=== PATIENT | female | born 1945 | race Caucasian/White ===

== ENCOUNTER → 2016-07-26 | Outpatient (CLI) | payer MEDICARE ==
--- NOTE | 2016-07-27 07:33 | MM ---
Reason for exam: screening (asymptomatic). Last mammogram was performed 1 year ago. History: Patient is postmenopausal. Took estrogen for 2 years beginning at age 51. Physical Findings: A clinical breast exam by your physician is recommended on an annual basis and results should be correlated with mammographic findings. MG 3D Screening Mammo W/Cad Bilateral CC and MLO view(s) were taken. Prior study comparison: July 24, 2015, bilateral MG 3d screening mammo w/cad. July 18, 2014, bilateral MG screening mammo w CAD. The breast tissue is heterogeneously dense. This may lower the sensitivity of mammography. No significant changes when compared with prior studies. ASSESSMENT: Benign, BI-RAD 2 RECOMMENDATION: Routine screening mammogram of both breasts in 1 year.
== END | disposition home or self-care (01) ==
LOC: RADMAMWWP 11:00
PROVIDERS: ATTEND Family Medicine
DX: Z12.31 Encounter for screening mammogram for malignant neoplasm of breast (principal)
CPT/HCPCS: 77063; G0202

== ENCOUNTER → 2017-01-03 | Outpatient (CLI) | payer MEDICARE | END | disposition home or self-care (01) | LOC: MMGSC 14:16 | PROVIDERS: ATTEND Family Medicine | DX: J32.9 Chronic sinusitis, unspecified (principal) | CPT/HCPCS: 87070 ==

== ENCOUNTER → 2017-04-26 | Outpatient (CLI) | payer MEDICARE ==
[2017-04-26 15:38] LABS: Potassium 4.6 mmol/L (3.5-5.1)
== END | disposition home or self-care (01) ==
LOC: LABWHC1 14:51
PROVIDERS: ATTEND Internal Medicine Cardiovascular Disease
DX: R00.2 Palpitations (principal)
CPT/HCPCS: 36415; 80051; 82565; 84443; 84520

== ENCOUNTER → 2017-06-15 | Outpatient (CLI) | payer MEDICARE ==
--- NOTE | 2017-06-15 13:11 | XR ---
EXAMINATION TYPE: XR ribs RT DATE OF EXAM: 06/15/2017 COMPARISON: NONE HISTORY: Pain TECHNIQUE: 5 views submitted FINDINGS: Visualized ribs are intact. Lung alvarez clear. No pneumothorax. No acute displaced rib frac ture. IMPRESSION: No acute displaced rib fracture.
== END | disposition home or self-care (01) ==
LOC: RADXRMAIN 11:53
PROVIDERS: ATTEND Family Medicine
DX: R07.81 Pleurodynia (principal)

== ENCOUNTER → 2017-10-17 | Outpatient (CLI) | payer MEDICARE ==
--- NOTE | 2017-10-19 10:17 | MM ---
Reason for exam: screening (asymptomatic). Last mammogram was performed 1 year and 3 months ago. History: Patient is postmenopausal. Took estrogen for 2 years beginning at age 51. Physical Findings: A clinical breast exam by your physician is recommended on an annual basis and results should be correlated with mammographic findings. MG 3D Screening Mammo W/Cad Bilateral CC and MLO view(s) were taken. Prior study comparison: July 26, 2016, bilateral MG 3d screening mammo w/cad. July 24, 2015, bilateral MG 3d screening mammo w/cad. The breast tissue is extremely dense which could obscure a lesion on mammography. New posterior central nodularity right MLO view. ASSESSMENT: Incomplete: need additional imaging evaluation, BI-RAD 0 RECOMMENDATION: Special view mammogram of the right breast. If lesion persists on supplemental views, image directed ultrasound is recommended. [facility] will attempt to contact patient to return for supplemental views and ultrasound if indicated.
== END | disposition home or self-care (01) ==
LOC: RADMAMWWP 14:00
PROVIDERS: ATTEND Family Medicine
DX: Z12.31 Encounter for screening mammogram for malignant neoplasm of breast (principal)
CPT/HCPCS: 77063; 77067

== ENCOUNTER → 2017-10-26 | Outpatient (CLI) | payer MEDICARE ==
--- NOTE | 2017-10-27 09:51 | MM ---
Reason for exam: additional evaluation requested from abnormal screening. Last mammogram was performed less than 1 month ago. History: Patient is postmenopausal. Took estrogen for 2 years beginning at age 51. Physical Findings: Nurse did not find any significant physical abnormalities on exam. MG 3D Work Up W/Cad RT LM and spot compression MLO view(s) were taken of the right breast. Prior study comparison: October 17, 2017, bilateral MG 3d screening mammo w/cad. July 26, 2016, bilateral MG 3d screening mammo w/cad. The breast tissue is extremely dense which could obscure a lesion on mammography. The posterior nodular asymmetric density does not persist on additional views. These results were verbally communicated with the patient and result sheet given to the patient on 10/26/17. ASSESSMENT: Incomplete: need additional imaging evaluation, BI-RAD 0 RECOMMENDATION: Ultrasound of the right breast.
--- NOTE | 2017-10-27 10:13 | USB ---
Reason for exam: additional evaluation requested from abnormal screening. History: Patient is postmenopausal. Took estrogen for 2 years beginning at age 51. US Breast Workup Limited RT Right limited breast ultrasound including focal area of concern, retroareolar and axilla demonstrates a 0.3 x 0.5 x 0.1cm oval, cystic, benign lesion at 5 o'clock and a 0.5 x 0.4 x 0.2cm oval, cystic benign lesion at 8 o'clock. At 9 o'clock there is a vague focal hypoechoic area measuring 8 x 7 x 3mm. The nurse wound reports that it is difficult to identify. Uncertain if this is a true lesion, 6 month follow up recommended. These results were verbally communicated with the patient and result sheet given to the patient on 10/26/17. ASSESSMENT: Probably benign, BI-RAD 3 RECOMMENDATION: Ultrasound of the right breast in 6 months. (9 o'clock)
== END | disposition home or self-care (01) ==
LOC: RADMAMWWP 13:33
PROVIDERS: ATTEND Family Medicine
DX: R92.8 Other abnormal and inconclusive findings on diagnostic imaging of breast (principal)
CPT/HCPCS: 77065; 76642; G0279; 77061

== ENCOUNTER → 2018-11-13 | Outpatient (CLI) | payer MEDICARE ==
--- NOTE | 2018-11-13 10:16 | MM ---
Reason for exam: additional evaluation requested from prior study. Last mammogram was performed 1 year and 1 month ago. History: Patient is postmenopausal. Took estrogen for 2 years beginning at age 51. Physical Findings: Nurse did not find any significant physical abnormalities on exam. MG 3D Diag Mammo W/Cad LASHAWN Bilateral CC and MLO view(s) were taken. Prior study comparison: October 26, 2017, right breast MG 3d work up w/cad RT. October 17, 2017, bilateral MG 3d screening mammo w/cad. The breast tissue is heterogeneously dense. This may lower the sensitivity of mammography. There is chronic nodularity in the right breast. No significant new findings when compared with previous films. These results were verbally communicated with the patient and result sheet given to the patient on 11/13/18. ASSESSMENT: Benign, BI-RAD 2 RECOMMENDATION: Routine screening mammogram of both breasts in 1 year.
== END | disposition home or self-care (01) ==
LOC: RADMAMWWP 09:26
PROVIDERS: ATTEND Family Medicine
DX: R92.8 Other abnormal and inconclusive findings on diagnostic imaging of breast (principal)
CPT/HCPCS: 77066; G0279; 77062

== ENCOUNTER → 2020-09-17 | Outpatient (CLI) | payer MEDICARE ==
--- NOTE | 2020-09-19 08:59 | MM ---
Reason for exam: screening (asymptomatic). Last mammogram was performed 1 year and 10 months ago. History: Patient is postmenopausal. Took estrogen for 2 years beginning at age 51. Physical Findings: A clinical breast exam by your physician is recommended on an annual basis and results should be correlated with mammographic findings. MG 3D Screening Mammo W/Cad Bilateral CC and MLO view(s) were taken. Prior study comparison: November 13, 2018, bilateral MG 3d diag mammo w/cad LASHAWN. October 17, 2017, bilateral MG 3d screening mammo w/cad. July 26, 2016, bilateral MG 3d screening mammo w/cad. The breast tissue is extremely dense which could obscure a lesion on mammography. Benign vascular calcifications. No significant changes when compared with prior studies. ASSESSMENT: Benign, BI-RAD 2 RECOMMENDATION: Routine screening mammogram of both breasts in 1 year. Patient should continue monthly self breast exams. A negative report should not preclude additional follow up of suspicious palpable abnormalities.
== END | disposition home or self-care (01) ==
LOC: RADMAMWWP 14:51
PROVIDERS: ATTEND Family Medicine
DX: Z12.31 Encounter for screening mammogram for malignant neoplasm of breast (principal); Z78.0 Asymptomatic menopausal state; Z79.818 Long term (current) use of other agents affecting estrogen receptors and estrogen levels
CPT/HCPCS: 77063; 77067

== ENCOUNTER → 2021-10-19 | Outpatient (CLI) | payer MEDICARE ==
--- NOTE | 2021-10-19 14:35 | MM ---
Reason for Exam: Screening (asymptomatic). Last mammogram was performed 1 year(s) and 1 month(s) ago. Patient History: Menarche at age 14. First Full-Term at age 29. Postmenopausal. Estrogen for 2 years from age 51 until age 53. Risk Values: Mimi 5 year model risk: 2.0%. NCI Lifetime model risk: 4.2%. Prior Study Comparison: 10/26/2017 Right Diagnostic Mammogram, [facility]. 11/13/2018 Bilateral Diagnostic Mammogram, [facility]. 09/17/2020 Bilateral Screening Mammogram, [facility]. Tissue Density: The breast tissue is heterogeneously dense. This may lower the sensitivity of mammography. Findings: Analyzed By CAD. Benign-appearing calcifications bilaterally. There is no suspicious group of microcalcifications or new suspicious mass in either breast. Overall Assessment: Benign, BI-RAD 2 Management: Screening Mammogram of both breasts in 1 year. A clinical breast exam by your physician is recommended on an annual basis and results should be correlated with mammographic findings. Electronically signed and approved by: Modesto Alcantara DO
== END | disposition home or self-care (01) ==
LOC: RADMAMWWP 13:45
PROVIDERS: ATTEND Family Medicine
DX: Z12.31 Encounter for screening mammogram for malignant neoplasm of breast (principal); Z78.0 Asymptomatic menopausal state
CPT/HCPCS: 77063; 77067

== ENCOUNTER → 2022-09-22 | Outpatient (CLI) | payer MEDICARE ==
[2022-09-22 11:56] LABS: HCT 43.3 % (37.2-46.3); HGB 13.6 d/dL (12.0-15.0); MCH 29.7 pg (27.0-32.0); MCHC 31.4 d/dL (32.0-37.0); MCV 94.5 FL (80.0-97.0); RBC 4.58 X 10*6/uL (4.10-5.20); RDW 13.2 % (11.5-14.5); WBC 3.56 X 10*3/uL (4.50-10.00)
[2022-09-22 11:57] LABS: Basophils # (A) 0.04 X 10*3/uL (0.00-0.10); Basophils % (A) 1.1 %; Eosinophils # (A) 0.18 X 10*3/uL (0.04-0.35); Eosinophils % (A) 5.1 %; Immature Grans, Automated 0 %; Lymphocytes # (A) 1.67 X 10*3/uL (0.90-5.00); Lymphocytes % (A) 46.9 %; Monocytes # (A) 0.48 X 10*3/uL (0.20-1.00); Monocytes % (A) 13.5 %; NRBC Per 100 WBC 0 X 10*3/uL (0.00-0.01); Neutrophils # (A) 1.19 X 10*3/uL (1.80-7.70); Neutrophils % (A) 33.4 %; Platelet Count 257 X 10*3/uL (140-440)
[2022-09-22 12:15] LABS: ALT 18 U/L (8-44); AST 20 U/L (13-35); Albumin 4.4 d/dL (3.8-4.9); Alkaline Phosphatase 49 U/L (41-126); BUN/Creat Ratio 18.38 Ratio (12.00-20.00); Blood Urea Nitrogen 14.7 mg/dL (9.0-27.0); Calcium 9.9 mg/dL (8.7-10.3); Carbon Dioxide 25.3 mmol/L (21.6-31.8); Chloride 106 mmol/L (96-109); Chol/HDL Ratio 3.48 Ratio; Globulin 2.1 d/dL (1.6-3.3); Glucose 86 mg/dL (70-110); LDL Cholesterol,Calculated 130.8 mg/dL (0.0-131.0); Potassium 4.5 mmol/L (3.5-5.5); Sodium 141 mmol/L (135-145); Total Bilirubin 0.5 mg/dL (0.3-1.2); Total Protein 6.5 d/dL (6.2-8.2)
== END | disposition home or self-care (01) ==
LOC: LABWHC1 07:30
PROVIDERS: ATTEND Family Medicine
DX: Z00.00 Encounter for general adult medical examination without abnormal findings (principal)
CPT/HCPCS: 36415; 80053; 80061; 83036; 85025; 86803

== ENCOUNTER → 2022-10-22 | Outpatient (CLI) | payer MEDICARE ==
--- NOTE | 2022-10-26 22:58 | MM ---
Reason for Exam: Screening (asymptomatic). Last mammogram was performed 1 year(s) and 1 month(s) ago. Patient History: Menarche at age 14. First Full-Term at age 29. Postmenopausal. Estrogen for 2 years from age 51 until age 53. Risk Values: Mimi 5 year model risk: 2.0%. NCI Lifetime model risk: 4.0%. Prior Study Comparison: 11/13/2018 Bilateral Diagnostic Mammogram, [facility]. 09/17/2020 Bilateral Screening Mammogram, [facility]. 10/19/2021 Bilateral MG 3D screening mammo w/cad, [facility]. Tissue Density: The breast tissue is heterogeneously dense. This may lower the sensitivity of mammography. Findings: Analyzed By CAD. Benign bilateral vascular calcifications are redemonstrated. There is no suspicious group of microcalcifications or new suspicious mass in either breast. Overall Assessment: Benign, BI-RAD 2 Management: Screening Mammogram of both breasts in 1 year. . Patient should continue monthly self-breast exams. A clinical breast exam by your physician is recommended on an annual basis. This exam should not preclude additional follow-up of suspicious palpable abnormalities. Note on Mimi scores and lifetime risk: 1. A Mimi score greater than 3% is considered moderate risk. If this is the case, consider specialist referral to assess eligibility for a risk reducing agent. 2. If overall lifetime risk for the development of breast cancer is 20% or higher, the patient may qualify for future screening with alternating mammogram and breast MRI. Electronically signed and approved by: Quang Lopez M.D. Radiologist
== END | disposition home or self-care (01) ==
LOC: RADMAMWWP 15:14
PROVIDERS: ATTEND Family Medicine
DX: Z12.31 Encounter for screening mammogram for malignant neoplasm of breast (principal); Z78.0 Asymptomatic menopausal state
CPT/HCPCS: 77063; 77067

== ENCOUNTER → 2023-09-14 | Outpatient (CLI) | payer MEDICARE ==
[2023-09-14 13:22] LABS: African American GFR (CKD) 86 (>60 ml/min/1.73 sqM); Blood Urea Nitrogen 15 mg/dL (7-17); Non-African American GFR(CKD) 75 (>60 ml/min/1.73 sqM)
--- NOTE | 2023-09-14 14:24 | US ---
EXAMINATION TYPE: US carotid duplex BILAT DATE OF EXAM: 09/14/2023 COMPARISON: NONE CLINICAL INDICATION: Female, 78 years old with history of R29.810 FACIAL WEAKNESS; Facial weakness an d twitching TECHNIQUE: Carotid duplex ultrasound examination. Indirect Doppler criteria was utilized. FINDINGS: EXAM MEASUREMENTS: RIGHT: Peak Systolic Velocity (PSV) cm/sec ----- Right CCA: 63.6 ----- Right ICA: 62.7 ----- Right ECA: 87.1 ICA/CCA ratio: 1.0 RIGHT: End Diastole cm/sec ----- Right CCA: 12.1 ----- Right ICA: 16.5 ----- Right ECA: 6.5 LEFT: Peak Systolic Velocity (PSV) cm/sec ----- Left CCA: 61.0 ----- Left ICA: 77.9 ----- Left ECA: 65.9 ICA/CCA ratio: 1.3 LEFT: End Diastole cm/sec ----- Left CCA: 12.5 ----- Left ICA: 24.1 ----- Left ECA: 8.6 VERTEBRALS (direction of flow): Right Vertebral: Antegrade Left Vertebral: Antegrade Rhythm: Normal RIVET SORTER NOTES: No significant stenosis seen IMPRESSION: No ultrasound evidence for hemodynamic significant stenosis of the bilateral visualized carotid arter ial systems. Criteria for Assigning % of Stenosis / Diameter reduction (Estimation based on the indirect measurements of the internal carotid artery velocities (ICA PSV). 1. Normal (no stenosis)=ICA PSV < 125 cm/s: ratio < 2.0: ICA EDV<40 cm/s. 2. Less than 50% stenosis=ICA PSV < 125 cm/s: ratio < 2.0: ICA EDV<40 cm/s. 3. 50 to 69% stenosis=ICA PSV of 125 to 230 cm/s: ration 2.0 ? 4.0: ICA EDV 40-100 cm/s. 4. Greater than 70% stenosis to near occlusion= ICA PSV > 230 cm/s: ratio > 4.0: ICA EDV > 100 cm/s. 5. Near occlusion= ICA PSV velocities may be low or undetectable: variable ratio and ICA EDV. 6. Total occlusion=unable to detect flow.
--- NOTE | 2023-09-14 15:03 | CT ---
EXAMINATION TYPE: CT brain wo/w con CT DLP: 2238 mGycm, Automated exposure control for dose reduction was used. DATE OF EXAM: 09/14/2023 2:21 PM COMPARISON: . CLINICAL INDICATION:Female, 78 years old with history of R29.810 FACIAL WEAKNESS; PHH, facial weaknes s TECHNIQUE: Axial CT images of the brain were obtained with coronal and sagittal reformats created and reviewed. Contrast used:100ml mL of Isovue 300 without and with IV Contrast, Oral contrast used: none. FINDINGS: Extra-axial spaces: Possible arachnoid cyst manifested by way CSF space in the left posterior cranial fossa. Otherwise, No abnormal extra-axial fluid collections. Ventricular system: Within normal limits Cerebral parenchyma: No acute intraparenchymal hemorrhage or mass effect. The polo-white junction is well differentiated. No abnormal enhancement is seen after the administration of intravenous contras t. Cerebellum: Unremarkable. Mass effect: No evidence of midline shift. Intracranial vasculature: unremarkable Soft tissues: Normal. Calvarium/osseous structures: No depressed skull fracture. Paranasal sinuses and mastoid air cells: Clear. Visualized orbits: Orbital contents are intact. IMPRESSION: No acute intracranial process. : Possible arachnoid cyst versus venous vessel versus other etiology manifested by CSF attenuation sp janes in the left posterior cranial fossa. MRI brain follow-up recommended.
== END | disposition home or self-care (01) ==
LOC: RADCTMAIN 12:35
PROVIDERS: ATTEND Family Medicine
DX: R29.810 Facial weakness (principal)
CPT/HCPCS: 82565; 84520; 93880; 70470; 36415; Q9967

== ENCOUNTER 2023-10-07 10:00 | Day surgery (SDC) | payer MEDICARE ==
[2023-10-07] MEDS ORDERED: ONDANSETRON 4 MG/2 ML VIAL ONE (10:43)
[2023-10-07] MEDS ORDERED: LIDOCAINE 1% INJ 10MG/ML (20 ML MDV) ONE (10:54)
[2023-10-07] MEDS ORDERED: LACTATED RINGERS 1,000 ML BAG ONE (10:54)
[2023-10-07] MEDS ORDERED: PROPOFOL 10 MG/ML 20 ML VIAL IV ONE (10:54)
--- NOTE | 2023-10-26 16:30 | OP ---
OPERATIVE REPORT DATE OF SERVICE : 10/07/2023 REQUESTING PHYSICIAN: Dr. Romo. BRIEF HISTORY: Patient is a 78-year-old pleasant white female scheduled for a colonoscopy as a part of evaluation of positive Cologuard/screening for colon cancer. PROCEDURE PERFORMED: Colonoscopy. PREOPERATIVE DIAGNOSIS: Screening for colon cancer and positive Cologuard, IV sedation per Anesthesia. DESCRIPTION OF PROCEDURE: After informed consent was obtained from the patient, he was brought to the endoscopy unit. IV conscious sedation was administered by Anesthesia and continuous monitoring. Initial distal rectal examination was normal. The Olympus CF-190 video colonoscope was then inserted into the rectum and gradually advanced into the cecum with moderate-to- severe difficulty. Careful examination was performed as the scope was gradually being withdrawn. There was large amount of thick stool noted throughout the entire colon and thorough irrigation was performed. Despite adequate irrigation, there were several areas of the colon that could not be adequately visualized. Part of the cecum was visualized that appeared normal. I was not able to aspirate the stool in the cecum. Mucosa of the ascending colon, transverse colon appeared normal. Part of the hepatic flexure and transverse colon could not be adequately visualized. Mucosa of the sigmoid colon and rectum appeared normal. Retroflexion was performed in the rectum. Small internal hemorrhoids were seen. Patient tolerated the procedure well. IMPRESSION: 1. Poor prep in several areas of the colon precluding adequate visualization. 2. Small internal hemorrhoids. RECOMMENDATION: Findings of this examination were discussed with the patient as well as the family. She was advised to be on a high-fiber diet, take fiber supplements on a regular basis, and use osmotic laxatives as needed and because of the poor prep, I recommend her to have a repeat colonoscopy in 1 to 2 years. MMODL / IJN: [id number] /
== END 2023-10-07 12:05 ==
LOC: ORWHC2ENDO 10:00
PROVIDERS: ATTEND Internal Medicine Gastroenterology
DX: K64.8 Other hemorrhoids (principal); I10 Essential (primary) hypertension; Z79.899 Other long term (current) drug therapy
CPT/HCPCS: 45378

== ENCOUNTER → 2023-11-16 | Outpatient (CLI) | payer MEDICARE ==
--- NOTE | 2023-11-20 08:05 | MM ---
Reason for Exam: Screening (asymptomatic). Last screening mammogram was performed 12 month(s) ago. Patient History: Menarche at age 14. First Full-Term at age 29. Postmenopausal. Estrogen for 2 years from age 51 until age 53. Risk Values: Mimi 5 year model risk: 1.9%. NCI Lifetime model risk: 3.7%. Prior Study Comparison: 09/17/2020 Bilateral Screening Mammogram, [facility]. 10/19/2021 Bilateral MG 3D screening mammo w/cad, [facility]. 10/22/2022 Bilateral MG 3D screening mammo w/cad, [facility]. Tissue Density: The breasts are heterogeneously dense, which may obscure small masses. Findings: Analyzed By CAD. The pattern is symmetrical. There is a focal asymmetric density within the anterior right breast present previously a benign vascular calcifications present bilaterally. No suspicious groups of microcalcifications, spiculated or lobular masses, architectural distortion or other secondary signs of malignancy are mammographically apparent. Overall Assessment: Benign, BI-RAD 2 Management: Screening Mammogram of both breasts in 1 year. A negative mammogram report should not preclude additional follow up of suspicious palpable abnormalities. Patient should continue monthly self breast exam. A clinical breast exam by your physician is recommended on an annual basis and results should be correlated with mammographic findings. Note on Mimi scores and lifetime risk: 1. A Mimi score greater than 3% is considered moderate risk. If this is the case, consider specialist referral to assess eligibility for a risk reducing agent. 2. If overall lifetime risk for the development of breast cancer is 20% or higher, the patient may qualify for future screening with alternating mammogram and breast MRI. [facility], , 11/20/2023 8:02 AM. Electronically signed and approved by: Octavio Solares D.O. Radiologis
== END | disposition home or self-care (01) ==
LOC: RADMAMWWP 15:02
PROVIDERS: ATTEND Family Medicine
CPT/HCPCS: 77063; 77067

== ENCOUNTER → 2023-12-21 | Outpatient (CLI) | payer MEDICARE ==
--- NOTE | 2023-12-22 11:10 | MR ---
EXAMINATION TYPE: MR angio head wo con DATE OF EXAM: 12/21/2023 10:10 AM COMPARISON: 12/21/2023 MRI brain., CT 09/14/2023. CLINICAL INDICATION: Female, 78 years old with history of R29.810 FACIAL WEAKNESS R94.02 ABNORMAL BRA IN SCAN; [facility], TECHNIQUE: 3-D [id number] Axial with MIP reconstruction created on a separate workstation.. IV Contrast: None cc FINDINGS: Vertebral arteries: The vertebral arteries are patent. Vertebral arteries are: Codominant. Basilar artery: The basilar artery is intact. The basilar artery bifurcation is normal. Internal Carotid arteries: The cervical, petrous, cavernous and supraclinoid segments are normal. KARY: Atrophic right P1 segment. Patent with no evidence of aneurysm. ACOM: Present without evidence of aneurysm. MCA: Patent with no evidence of aneurysm. FORESTRY TECHNICAL OFFICER: Patent with no evidence of aneurysm. PCOM: Hypoplastic bilaterally. IMPRESSION: 1. No evidence of aneurysm or significant stenosis. 2. Hypoplastic right A1 segment. 3. Please see dedicated MRI brain for findings involving the posterior cranial fossa. [facility], , 12/22/2023 11:08 AM
--- NOTE | 2023-12-22 13:27 | MR ---
EXAMINATION TYPE: MR brain and iac wo/w con DATE OF EXAM: 12/21/2023 10:10 AM COMPARISON: CT 09/14/2023. CLINICAL INDICATION: Female, 78 years old with history of R29.810 FACIAL WEAKNESS R94.02 ABNORMAL BRA IN SCAN; [facility], Abnormal CT TECHNIQUE: Multi planar, multi sequence imaging was performed through the brain. Specialized thin s equences were obtained through the internal auditory canals. Pre-and post gadolinium sequences were obtained. MR contrast: IV Contrast: 6 cc Gadobutrol FINDINGS: Prominent CSF space along the left lateral aspect of the cerebellum and no significant mass effect upon the cerebellum itself. This makes it less likely to be an arachnoid cyst and is prominen t cerebrospinal fluid space. The polo-white junctions, ventricular system, and cisterns appear unrema rkable. Scattered foci of high T2 signal intensity are seen within the periventricular white matter. Midline structures show no abnormality. Diffusion-weighted imaging shows no evidence of restricted d iffusion. The susceptibility weighted images do not reveal any evidence for micro-hemorrhage. The bone marrow signal is within normal limits. Paranasal sinuses and mastoid air cells: Mild scattered paranasal sinus disease. Visualized orbits: Bilateral aphakia After administration of gadolinium, no abnormal enhancement is seen. The internal auditory canal sequences demonstrate no significant irregularity. The 7th cranial nerve s, 8 cranial nerves, and cerebellar pontine angles appear unremarkable. After the administration kimberly olinium, no abnormal enhancement is seen within the internal auditory canals. Vascular loop: None. IMPRESSION: 1. Prominent left posterior cranial fossa CSF space without evidence for enhancing mass. No signific ant displacement to suggest arachnoiditis cyst. No evidence of intracranial mass nor acute/subacute C VA. 2. No evidence of internal auditory canal abnormality. 3. Nonspecific white matter changes, likely secondary to small vessel ischemic disease. [facility], , 12/22/2023 1:24 PM
== END | disposition home or self-care (01) ==
LOC: RADMRIMAIN 08:13
PROVIDERS: ATTEND Psychiatry & Neurology Neurology
DX: R29.810 Facial weakness (principal); R94.02 Abnormal brain scan; G93.89 Other specified disorders of brain
CPT/HCPCS: 70544; 70553; A9585

== ENCOUNTER 2024-04-14 13:07 | Emergency (ER) | payer MEDICARE ==
[2024-04-14 13:29] VITALS: RESP 18
--- NOTE | 2024-04-14 13:45 | ED ---
General Adult HPI - General Chief complaint: Fall Stated complaint: Fall-L hip injury Time Seen by Provider: 04/14/24 13:33 Source: patient Mode of arrival: wheelchair - History of Present Illness Initial comments: Dictation was produced using [employer] dictation software. please excuse any grammatical, word or spelling errors. Chief Complaint: 79-year-old female hip pain History of Present Illness: Patient 71-year-old female presents emergency department left-sided hip pain. She slipped on the ice yesterday and landed on her left hip. Patient states the pain was severe she was unable to stand up or bear any weight. Patient worried that her left hip is broken. She is able to stand though with significant pain. Denies any numbness tingling paresthesias to the left lower extremity The ROS documented in this emergency department record has been reviewed and confirmed by me. Those systems with pertinent positive or negative responses have been documented in the HPI. All other systems are other negative and/or noncontributory. - Related Data Home Medications Medication Instructions Recorded Confirmed Aspirin [Adult Low Dose Aspirin EC] 81 mg PO DAILY 12/10/16 12/14/16 Cholecalciferol (Vitamin D3) 2,000 unit PO DAILY 12/10/16 12/14/16 [Vitamin D3] Magnesium Gluconate [Magonate] 1,000 mg PO DAILY 12/10/16 12/14/16 Potassium Gluconate [Potassium 99 mg PO DAILY 12/10/16 12/14/16 Gluconate ER] Allergies Allergy/AdvReac Type Severity Reaction Status Date / Time No Known Allergies Allergy Verified 04/14/24 13:28 Review of Systems ROS Statement: Those systems with pertinent positive or pertinent negative responses have been documented in the HPI. ROS Other: All systems not noted in ROS Statement are negative. Past Medical History Past Medical History: Atrial Fibrillation Additional Past Medical History / Comment(s): + COLOGARD RESULTS History of Any Multi-Drug Resistant Organisms: None Reported Past Surgical History: Cardiac Ablation, Orthopedic Surgery, Tubal Ligation Additional Past Surgical History / Comment(s): ORIF LT WRIST. BILAT BUNIONECTOMY. COLONOSCOPY Past Anesthesia/Blood Transfusion Reactions: Previous Problems w/ Anesthesia, Motion Sickness, Postoperative Nausea & Vomiting (PONV) Additional Past Anesthesia/Blood Transfusion Reaction / Comment(s): SLOW TO WAKE UP Past Psychological History: No Psychological Hx Reported Smoking Status: Never smoker Past Alcohol Use History: None Reported Past Drug Use History: None Reported - Past Family History Mother Family Medical History: No Reported History General Exam - General Exam Comments Initial Comments: PHYSICAL EXAM: General Impression: Alert and oriented x3, not in acute distress HEENT: Normocephalic atraumatic, extra-ocular movements intact, pupils equal and reactive to light bilaterally, mucous membranes moist. Cardiovascular: Heart regular rate and rhythm Chest: Able to complete full sentences, no retractions, no tachypnea Abdomen: abdomen soft, non-tender, non-distended, no organomegaly Musculoskeletal: Pulses present and equal in all extremities, no peripheral edema Motor: no focal deficits noted Neurological: CN II-XII grossly intact, no focal motor or sensory deficits noted Skin: Intact with no visualized rashes Psych: Normal affect and mood Left lower extremity: Left lower extremity is not shortened or rotated. Range of motion is intact passively. Palpatory tenderness over the greater trochanter Course Vital Signs 04/14/24 13:23 Temperature 98.4 F Pulse Rate 65 Respiratory 18 Rate Blood Pressure 150/77 O2 Sat by Pulse 98 Oximetry Medical Decision Making - Medical Decision Making Was pt. sent in by a medical professional or institution (, PA, PERSONNEL SCHEDULER, urgent care, hospital, or senior living...) When possible be specific @ -No Did you speak to anyone other than the patient for history (EMS, parent, family, police, friend...)? What history was obtained from this source @ -No Did you review nursing and triage notes (agree or disagree)? Why? @ -I reviewed and agree with nursing and triage notes Were old charts reviewed (outside hosp., previous admission, EMS record, old EKG, old radiological studies, urgent care reports/EKG's, senior living records)? Report findings @ -No old charts were reviewed Differential Diagnosis (chest pain, altered mental status, abdominal pain women, abdominal pain men, vaginal bleeding, musculoskeletal, weakness, fever, dyspnea, syncope, headache, dizziness, GI bleed, back pain, seizure, CVA, palpatations, mental health)? @ -Hip fracture, hip strain, hip contusion EKG interpreted by me (3pts min.). @ -None done X-rays interpreted by me (1pt min.). @ -Left hip x-ray shows no hip fractures or acute processes CT interpreted by me (1pt min.). @ -None done U/S interpreted by me (1pt. min.). @ -None done What testing was considered but not performed or refused? (CT, X-rays, U/S, labs)? Why? @ -None What meds were considered but not given or refused? Why? @ -None Was smoking cessation discussed for >3mins.? @ -No Were there social determinants of health that impacted care today? How? (Homelessness, low income, unemployed, alcoholism, drug addiction, transportation, low edu. Level, literacy, decrease access to med. care, skilled nursing, rehab)? @ -No Was there de-escalation of care discussed even if they declined (Discuss DNR or withdrawal of care, Hospice)? DNR status @ -No What co-morbidities impacted this encounter? (DM, HTN, Smoking, COPD, CAD, Cancer, CVA, ARF, Chemo, Hep., AIDS, mental health diagnosis, sleep apnea, morbid obesity)? @ -None Was patient admitted / discharged? Hospital course, mention meds given and route, prescriptions, significant lab abnormalities, going to OR and other pertinent info. @ -71-year-old female presents to the ER for hip contusion. Vital signs stable. X-ray does not show any acute processes. Patient discharged advised follow-up with primary care doctor Did you discuss the management of the patient with other professionals (professionals i.e. , PA, PERSONNEL SCHEDULER, lab, RT, psych nurse, social media job titles, ultrasound technologist sonographer, teacher, disabilities services officer, clinical case manager)? Give summary @ -No Was critical care preformed (if so, how long)? @ -No Undiagnosed new problem with uncertain prognosis? @ -No Drug Therapy requiring intensive monitoring for toxicity (Heparin, Nitro, Insulin, Cardizem)? @ -No Were any procedures done? @ -No Diagnosis/symptom? Acute, or Chronic, or Acute on Chronic? Uncomplicated (without systemic symptoms) or Complicated (systemic symptoms)? @ -Hip contusion Side effects of treatment? @ -No Exacerbation, Progression, or Severe Exacerbation? @ -No Poses a threat to life or bodily function? How? (Chest pain, [place], [place], pneumonia, PE, COPD, DKA, ARF, appy, cholecystitis, CVA, Diverticulitis, Homicidal, Suicidal, threat to staff... and all critical care pts) @ -No Disposition Clinical Impression: Contusion, hip Disposition: HOME SELF-CARE Condition: Fair Instructions (If sedation given, give patient instructions): Fall Prevention for Older Adults (ED) Is patient prescribed a controlled substance at d/c from ED?: No Referrals: Madhuri Rockwell MD [Primary Care Provider] - 1-2 days Time of Disposition: 14:15
[2024-04-14] MEDS: MORPHINE SULFATE 4 MG/ML SYRINGE IM STA (13:50)
--- NOTE | 2024-04-14 13:55 | XR ---
EXAMINATION TYPE: XR Hip LT and AP Pelvis DATE OF EXAM: 04/14/2024 1:47 PM COMPARISON: None CLINICAL INDICATION: Female, 79 years old with history of fall, pain; PHH, pain TECHNIQUE: XR Hip LT and AP Pelvis; hip was examined in the frontal and lateral projections and a AP pelvis. FINDINGS: No evidence for acute process, joint dislocation or significant soft tissue swelling. Osteo phyte formation of the superior acetabulum of the hip. There is mild joint space narrowing. IMPRESSION: 1. No evidence for acute process. 2. Mild hip osteoarthrosis. [facility], , 04/14/2024 1:52 PM
[2024-04-14] MEDS: traMADol 50 MG STARTER PACK 3 TAB BTL PO STA (14:40)
--- NOTE | 2024-04-14 15:00 | CT ---
EXAMINATION TYPE: CT hip LT wo con DATE OF EXAM: 04/14/2024 2:43 PM COMPARISON: . Extremity radiograph same day. CLINICAL INDICATION: Female, 79 years old with history of hip pain, Fall x 1 day, left hip pain TECHNIQUE: Axial images were obtained of the CT hip LT wo con, Additional coronal and sagittal reform atted images and soft tissue and bone window were obtained for review. 3-D reconstruction was created on a separate workstation. Contrast used: mL of , (None if empty) Oral contrast used: (None if empty) CT DLP: 442 mGycm, Automated exposure control for dose reduction was used. FINDINGS: Subtle buckling of the superior pubis ramus series 202 image 23 series 201 image 30. Additi onal anterior acetabular fracture series 201 image 24, series 202 image 30 no fracture line is seen e xtending out medial portion of the pubic ramus series 201 image 24 and possibly within the intra-juliet cular portion of the left hip series 201 image 27. The femurs intact. IMPRESSION: Acute fracture of the superior pubic ramus medially and near the acetabulum. This may enter the left hip complete. Fractures are nondisplaced. Consider MR for further workup. The femur is intact. [facility], , 04/14/2024 2:57 PM
[2024-04-14 15:29] VITALS: BP 169/81; PULSE 68; TEMP 97.6
== END 2024-04-14 15:35 | disposition home or self-care (01) ==
LOC: EC 13:07
DX: S70.02XA Contusion of left hip, initial encounter (principal); W00.0XXA Fall on same level due to ice and snow, initial encounter
CPT/HCPCS: 73502; 73700; 99284; 96372; J2270

== ENCOUNTER → 2024-04-23 | Outpatient (CLI) | payer MEDICARE | END | disposition home or self-care (01) | LOC: LABWHC1 16:10 | PROVIDERS: ATTEND Orthopaedic Surgery | DX: M25.552 Pain in left hip (principal) | CPT/HCPCS: 36415; 82652 ==

== ENCOUNTER → 2024-04-26 | Outpatient (CLI) | payer MEDICARE | END | disposition home or self-care (01) | LOC: LABWHC1 15:29 | PROVIDERS: ATTEND Orthopaedic Surgery | DX: M25.552 Pain in left hip (principal) | CPT/HCPCS: 36415; 82306 ==